=== PATIENT | female | born 1985 | race Caucasian/White ===

== ENCOUNTER 2016-05-05 11:56 | Emergency (ER) | payer BC, OTHER ==
[~2016-05-05] VITALS: Ht 162.6 cm; Wt 88.0 kg
[~2016-05-05 11:56] MED LIST: ADVIN10/60 INH; ALBU1AER9 INH; GFNSR600 PO; INSPMPNVLG; METF-384 PO; METO-217 PO; NAPR-1169 PO; OXYC-106 PO; PANT1TAB48 PO; RISP2TAB21 PO
[2016-05-05 12:01] VITALS: TEMP 36.8; Ht 162.6 cm; Wt 88.0 kg
[2016-05-05] MEDS ORDERED: FENTANYL CITRATE INJ 50 MCG/1 ML 2 ML VIAL IV STA (12:21)
[2016-05-05] MEDS ORDERED: ONDANSETRON INJ 2 MG/ML 2 ML VIAL IV STA (12:21)
[2016-05-05 12:31] VITALS: O2SAT 97
[2016-05-05 12:42] LABS: BASO % 0.4 %; BASO ABS # 0.04 K/uL (0-0.2); COMPLETE YES; EOS % 1.7 %; HEMATOCRIT 38.5 % (37-47); IG% 0.4 %; LYMPH % 29.7 %; LYMPH ABS # 2.74 K/uL (1.2-3.4); MEAN CELL VOLUME 81.7 fL (80-100); MEAN CORPUSCULAR HEMOGLOBIN 28.5 pg (25-34); MEAN CORPUSCULAR HGB CONC 34.8 g/dl (32-36); MONO % 5.6 %; NEUT % 62.2 %; PLATELET COUNT 315 K/uL (130-400); RED BLOOD COUNT 4.71 M/uL (4.2-5.4); WHITE BLOOD COUNT 9.22 K/uL (4.8-10.8)
[2016-05-05] MEDS ORDERED: MAGN250T9 PO (12:43)
[2016-05-05] MEDS ORDERED: BUPRTAB51 PO (12:43)
[2016-05-05] MEDS ORDERED: ATV/1 PO (12:43)
[2016-05-05] MEDS ORDERED: VNTHFA/IN INH (12:43)
[2016-05-05] MEDS ORDERED: CLON0.5T3 PO (12:43)
[2016-05-05] MEDS ORDERED: CHOL400T PO (12:43)
[2016-05-05 13:00] LABS: BUN/CREATININE RATIO 11.1 (10-20); CALCIUM 9.4 mg/dl (8.5-10.1); CREATININE 0.84 mg/dl (0.60-1.20); POTASSIUM 4.1 mmol/L (3.5-5.1)
[2016-05-05 13:08] LABS: INR 0.9 (0.9-1.1); PROTHROMBIN TIME (PATIENT) 10.1 SECONDS (9.0-12.0)
[2016-05-05 13:13] LABS: PREG INTERNAL NEGATIVE QC NEG CLEAR BACKGROUND; PREG INTERNAL POSITIVE QC POS CONTROL LINE
[2016-05-05 13:57] LABS: THYROID STIMULATING HORMONE 2.51 uIu/ml (0.300-4.500)
--- NOTE | 2016-05-05 14:22 | DIAGNOSTIC IMAGING REPORT ---
CHEST 2 VIEWS ROUTINE CLINICAL HISTORY: Pneumonia COMPARISON STUDY: 06/13/2014 FINDINGS: The cardiac and mediastinal contours are normal. There is no evidence of focal pulmonary consolidation. There is no evidence of failure. No pleural effusions are visualized.[ IMPRESSION: No active disease in the chest. Electronically signed by: Shahram Dubois M.D. 05/05/2016 2:20 PM Dictated Date/Time: 05/05/2016 2:19 PM
[2016-05-05 14:56] VITALS: BP 133/74; PULSE 96; O2SAT 97
--- NOTE | 2016-05-05 18:41 | EMERGENCY ROOM VISIT NOTE ---
History Report prepared by Ky: Jasmin Giraldo Under the Supervision of: Dr. Sp Sun M.D. First contact with patient: 12:08 Chief Complaint: PALPITATIONS Stated Complaint: CHEST PAIN/PALPITATIONS, SOB HX: CARDIAC Nursing Triage Summary: Pt c/o palpitations that started at 0700 this am. Mid chest pain began approx 2 hours ago, 1000. Pain goes through to back. SOB and feels like when she breaths in she's taking a deep breath of cold air. Ablation 2 years ago July 2014 for SVT History of Present Illness The patient is a 31 year old female who presents to the Emergency Room with complaints of persistent heart palpitations that began this morning when she woke up. She feels as if her heart is racing during the episodes. About 1.5-2 hours ago the patient developed sharp, central chest pain which radiates through her back and ribs as well as shortness of breath. Her pain is worse with movement. She states, "it feels like I am taking in cold air with deep breaths." Upon arrival, she also complains of nausea. She has had some acid reflux over the past 2 days. The patient was diagnosed with pneumonia and was treated for it about a month ago, although she states that she had pneumonia for an entire month. She notes that she still feels slightly weak and has a slight cough that has not gone away since being diagnosed. When she gets pneumonia she does have chest pain, but her current pain does not feel the same. The patient has a history of asthma but has not used her inhaler or nebulizer since the onset of her symptoms. She notes that she had a stress test over ten years ago. She has not had any recent falls or injuries. Denies fever, leg swelling or pain, or other complaints. She is not on hormonal control. There is no chance of . She does not smoke. She does not have a history of clots in the legs or lungs. There is a family history of heart disease. Her grandfather and uncle on her father's side of the family of heart attacks around the age of 50. Source of History: patient Onset: this morning Position: other (cardiac) Quality: other (palpitations) Timing: other (persistent) Associated Symptoms: + SOB, + chest pain, + cough, + nausea, + weakness, No fevers Review of Systems See HPI for pertinent positives & negatives. A total of 10 systems reviewed and were otherwise negative. Past Medical & Surgical Medical Problems: (1) Appendectomy (2) Asthma, Unspecified (3) Diab Ritika Wo Compl, Type Ii Or Unspec Type, Not Uncntrld (4) Esophageal Reflux (5) Hypertension Nos (6) Irritable Bowel Syndrome Family History Diabetes mellitus FH: cancer FH: gallbladder disease FH: heart disease FH: lung disease Hypertension Kidney disease Kidney stones Seizures Social History Smoking Status: Former Smoker Alcohol Use: occasionally Marital Status: in relationship Housing Status: lives with significant other Occupation Status: employed, student Current/Historical Medications Scheduled Albuterol Hfa (Ventolin Hfa), 2-4 PUFFS INH Q6H Bupropion Hcl (Wellbutrin Xl), 300 MG PO DAILY Cholecalciferol (Vitamin D), 400 UNIT PO DAILY Clonazepam (Klonopin), 0.5 MG PO TID Fluticasone Prop/Salmeterol (Advair Diskus 100/50 60 Dose), 1 PUFF INH BID Insulin Aspart (novoLOG INSULIN PUMP ), 1 EA N/A UD Magnesium (Magnesium), 250 MG PO DAILY Metformin Hcl (Glucophage), 1,000 MG PO BID Metoprolol Succinate (Toprol Xl), 50 MG PO DAILY Pantoprazole (Protonix), 40 MG PO DAILY Scheduled PRN Guaifenesin Ext Rel (Mucinex Ext Rel), 1,200 MG PO Q12 PRN for congestion Lorazepam (Ativan), 1-2 MG PO TID PRN for Anxiety Naproxen (Naprosyn), 500 MG PO BID PRN for Pain Oxycodone/Acetaminophen 10MG/325MG (Percocet 10MG/325MG), 1 TAB PO Q4-6HRS PRN for Pain Allergies Coded Allergies: Hydromorphone (Verified Allergy, Intermediate, HOT HIVES ITCHY, 05/05/16) Latex1 -Allergic Contact Dermititis (Verified Allergy, Mild, 05/05/16) Physical Exam Vital Signs Date Time Temp Pulse Resp B/P Pulse Ox O2 Delivery O2 Flow Rate FiO2 05/05/16 14:56 96 17 133/74 97 05/05/16 13:30 98 20 127/80 95 Room Air 05/05/16 12:50 91 05/05/16 12:31 97 Room Air 05/05/16 12:05 98 05/05/16 12:01 36.8 102 18 151/91 96 Room Air Physical Exam Constitutional: Vital signs reviewed. Eyes: Pupils are equal round reactive to light. Conjunctiva are noninjected. ENT: Pharynx is clear without erythema or exudate. Mucous membranes are moist. Neck supple without meningeal signs. Respiratory: Clear to auscultation bilaterally. Breath sounds are equal bilaterally. Cardiovascular: Regular rate and rhythm. No rubs or gallops. GI: Soft, nondistended and nontender. Bowel sounds are present. Musculoskeletal: No peripheral edema. No lower extremity tenderness. Reproducible rib and sternal tenderness to palpation. Integumentary: No cyanosis. Neurological: The patient is awake and alert. No focal deficits. Psychiatric: Normal affect. Medical Decision & Procedures ER Provider Diagnostic Interpretation: X-ray results as stated below per interpretation by me and the radiologist: CHEST 2 VIEWS ROUTINE CLINICAL HISTORY: Pneumonia COMPARISON STUDY: 06/13/2014 FINDINGS: The cardiac and mediastinal contours are normal. There is no evidence of focal pulmonary consolidation. There is no evidence of failure. No pleural effusions are visualized.[ IMPRESSION: No active disease in the chest. Electronically signed by: Shahram Dubois M.D. 05/05/2016 2:20 PM Dictated Date/Time: 05/05/2016 2:19 PM Laboratory Results 05/05/16 12:30 Red Blood Count 4.71, Mean Corpuscular Volume 81.7, Mean Corpuscular Hemoglobin 28.5, Mean Corpuscular Hemoglobin Concent 34.8, Mean Platelet Volume 10.0, Neutrophils (%) (Auto) 62.2, Lymphocytes (%) (Auto) 29.7, Monocytes (%) (Auto) 5.6, Eosinophils (%) (Auto) 1.7, Basophils (%) (Auto) 0.4, Neutrophils # (Auto) 5.72, Lymphocytes # (Auto) 2.74, Monocytes # (Auto) 0.52, Eosinophils # (Auto) 0.16, Basophils # (Auto) 0.04 05/05/16 12:30 Test 05/05/16 12:30 05/05/16 12:39 White Blood Count 9.22 K/uL (4.8-10.8) Red Blood Count 4.71 M/uL (4.2-5.4) Hemoglobin 13.4 g/dL (12.0-16.0) Hematocrit 38.5 % (37-47) Mean Corpuscular Volume 81.7 fL (80-100) Mean Corpuscular Hemoglobin 28.5 pg (25-34) Mean Corpuscular Hemoglobin Concent 34.8 g/dl (32-36) Platelet Count 315 K/uL (130-400) Mean Platelet Volume 10.0 fL (7.4-10.4) Neutrophils (%) (Auto) 62.2 % Lymphocytes (%) (Auto) 29.7 % Monocytes (%) (Auto) 5.6 % Eosinophils (%) (Auto) 1.7 % Basophils (%) (Auto) 0.4 % Neutrophils # (Auto) 5.72 K/uL (1.4-6.5) Lymphocytes # (Auto) 2.74 K/uL (1.2-3.4) Monocytes # (Auto) 0.52 K/uL (0.11-0.59) Eosinophils # (Auto) 0.16 K/uL (0-0.5) Basophils # (Auto) 0.04 K/uL (0-0.2) RDW Standard Deviation 39.3 fL (36.4-46.3) RDW Coefficient of Variation 13.0 % (11.5-14.5) Immature Granulocyte % (Auto) 0.4 % Immature Granulocyte # (Auto) 0.04 K/uL (0.00-0.02) Prothrombin Time 10.1 SECONDS (9.0-12.0) Prothromb Time International Ratio 0.9 (0.9-1.1) Activated Partial Thromboplast Time 24.8 SECONDS (21.0-31.0) Partial Thromboplastin Ratio 1.0 Anion Gap 9.0 mmol/L (3-11) Est Creatinine Clear Calc Drug Dose 105.2 ml/min Estimated GFR () 108.1 Estimated GFR (Non- 93.3 BUN/Creatinine Ratio 11.1 (10-20) Calcium Level 9.4 mg/dl (8.5-10.1) Thyroid Stimulating Hormone (TSH) 2.510 uIu/ml (0.300-4.500) Free Thyroxine 0.90 ng/dl (0.80-1.60) Human Chorionic Gonadotropin, Qual NEG (NEG) Bedside D-Dimer 139 ng/mlFEU (0-450) Bedside Troponin I 0.000 ng/ml (0-0.045) Laboratory results as reviewed by me. Medications Administered Medications (Trade) Dose Ordered Sig/Danette Route Start Time Stop Time Status Last Admin Dose Admin Fentanyl Citrate (Fentanyl Inj) 50 mcg NOW STAT IV 05/05/16 12:21 05/05/16 12:24 DC 05/05/16 12:44 50 MCG Ondansetron HCl (Zofran Inj) 4 mg NOW STAT IV 05/05/16 12:21 05/05/16 12:24 DC 05/05/16 12:43 4 MG ECG Indication: chest pain, palpitations Rate (beats per minute): 86 Rhythm: normal sinus Findings: no acute ischemic change, no ectopy ED Course 1215: The patient was evaluated in room C11. A complete history and physical exam was performed. 1221: Ordered Zofran Inj 4 mg IV, Fentanyl Inj 50 mcg IV. 1420: I reassessed the patient and talked to her about test results. She was feeling better. 1438: I reassessed the patient. She was resting comfortably. She agreed to take antiinflammatories for her pain. The patient was discharged home. Medical Decision This is a 31-year-old female who presents with chest pain and shortness of breath. Differential diagnosis includes pleurisy, pneumonia, musculoskeletal pain, costochondritis, pulmonary embolism. I did perform a limited focused review of portions of the patient's old chart on the electronic medical record. The patient has had no recent pertinent visits to this hospital. I did evaluate the patient as noted above. The patient is recovering from pneumonia. She was treated with antibiotics. She is presenting with very reproducible chest wall pain on palpation and with movement. IV access was established. The patient was placed on a continuous printed circuit boards router. I did treat patient with fentanyl IV. I did order and personally review the patient' s 12-lead EKG and chest x-ray as described above. Her twelve-lead EKG does not demonstrate any signs of acute ischemia. Her chest x-ray does not show pneumonia or pneumothorax. I did order and review the patient's blood work as noted in the electronic medical record. TFTs and electrolytes are unremarkable. Troponin and d-dimer are both negative. I did reassess patient. She is feeling better. I did discuss the test results with her. I did discuss the need for close follow up. She was advised to use NSAIDs for pain. She was discharged in good condition. Impression Primary Impression: Acute chest pain Additional Impression: Palpitations Scribe Attestation The scribe's documentation has been prepared under my direct and personally reviewed by me in its entirety. I confirm that the note above accurately reflects all work, treatment, procedures, and medical decision making performed by me. Departure Information Dispostion Home / Self-Care Referrals Amelia Mccartney (PCP) Patient Instructions ED Chest Pain Atypical Unkn Cause, ED Palpitations, My [facility] Additional Instructions You have been examined and treated today on an emergency basis only. This is not a substitute for, or an effort to provide, complete comprehensive medical care. It is impossible to recognize and treat all injuries or illnesses in a single emergency department visit. It is therefore important that you follow up closely with your physician. Call as soon as possible for an appointment. Return for worsening symptoms or if you develop any other concerning symptoms. Problem Qualifiers
== END 2016-05-05 14:58 | disposition home or self-care (01) ==
LOC: C.EDB 11:57 → C.EDC 14:58
DX: R00.2 Palpitations (principal); R07.9 Chest pain, unspecified; I10 Essential (primary) hypertension; E11.9 Type 2 diabetes mellitus without complications; K21.9 Gastro-esophageal reflux disease without esophagitis; J45.909 Unspecified asthma, uncomplicated; K58.9 Irritable bowel syndrome, unspecified; Z79.4 Long term (current) use of insulin; Z79.84 Long term (current) use of oral hypoglycemic drugs; Z79.899 Other long term (current) drug therapy; Z87.891 Personal history of nicotine dependence; Z88.5 Allergy status to narcotic agent; Z91.040 Latex allergy status; Z83.3 Family history of diabetes mellitus; Z80.9 Family history of malignant neoplasm, unspecified; Z83.79 Family history of other diseases of the digestive system; Z82.49 Family history of ischemic heart disease and other diseases of the circulatory system; Z84.1 Family history of disorders of kidney and ureter; Z82.0 Family history of epilepsy and other diseases of the nervous system

== ENCOUNTER 2016-11-19 12:29 | Emergency (ER) | payer BC, OTHER ==
[~2016-11-19] VITALS: Ht 163.8 cm; Wt 87.4 kg
[~2016-11-19 12:29] MED LIST changes: -ALBU1AER9 INH; +ATV/1 PO; +BUPRTAB51 PO; +CHOL400T PO; +CLON0.5T3 PO; +MAGN250T9 PO; -RISP2TAB21 PO; +VNTHFA/IN INH
[2016-11-19 12:35] VITALS: TEMP 37.1; Ht 163.8 cm; Wt 87.4 kg
[2016-11-19] MEDS ORDERED: CLON1TAB3 PO (13:03)
[2016-11-19] MEDS ORDERED: ZNTT/150 PO (13:03)
[2016-11-19] MEDS ORDERED: KETOROLAC TROMETHAMINE 30 MG/ML VIAL IV STA (13:20)
[2016-11-19] MEDS ORDERED: ALBUT/IPRATROP 3MG/0.5MG NEB 3 ML VIAL INH STA (13:20)
--- NOTE | 2016-11-19 13:26 | EMERGENCY ROOM VISIT NOTE ---
History First contact with patient: 13:03 Chief Complaint: CHEST PAIN Stated Complaint: CHEST/RIB PAIN, SOB Nursing Triage Summary: Pt presents with "muscle tightness" in upper abd for a couple days. Pain under b/l breasts started this morning. SOB. Pt reports hx of pleurisy and two nodules on left lung. History of Present Illness The patient is a 31 year old female who presents to the Emergency Room with complaints of epigastric and bilateral chest pain that started last night. It started in her upper abdomen. Now it is radiating to the sides of her ribs. It is exacerbated with deep breathing. She denies any shortness of breath. No recent illnesses such as cough or fever. The patient was a history of tachycardia. She underwent an ablation in 2013. She does admit to feeling occasionally lightheaded. She denies any heart racing or heart palpitations. She has been nauseated since last night without any vomiting. No changes in her bowel movements. No recent changes in medications. Review of Systems 10 system review performed and negative unless noted in HPI or below Past Medical/Surgical History Medical Problems: (1) Appendectomy (2) Asthma, Unspecified (3) Diab Ritika Wo Compl, Type Ii Or Unspec Type, Not Uncntrld (4) Esophageal Reflux (5) Hypertension Nos (6) Irritable Bowel Syndrome Family History Diabetes mellitus FH: cancer FH: gallbladder disease FH: heart disease FH: lung disease Hypertension Kidney disease Kidney stones Seizures Social History Smoking Status: Former Smoker Alcohol Use: occasionally Marital Status: in relationship Housing Status: other (lives with her brother) Occupation Status: employed, student Current/Historical Medications Scheduled Albuterol Hfa (Ventolin Hfa), 2-4 PUFFS INH Q6H Bupropion Hcl (Wellbutrin Xl), 300 MG PO DAILY Cholecalciferol (Vitamin D), 400 UNIT PO DAILY Clonazepam (Klonopin), 1 MG PO TID Fluticasone Prop/Salmeterol (Advair Diskus 100/50 60 Dose), 1 PUFF INH BID Insulin Aspart (novoLOG INSULIN PUMP ), 1 EA N/A UD Magnesium (Magnesium), 250 MG PO DAILY Metformin Hcl (Glucophage), 1,000 MG PO BID Metoprolol Succinate (Toprol Xl), 50 MG PO DAILY Pantoprazole (Protonix), 40 MG PO DAILY Ranitidine (Zantac), 1 TAB PO DAILY Scheduled PRN Guaifenesin Ext Rel (Mucinex Ext Rel), 1,200 MG PO Q12 PRN for congestion Lorazepam (Ativan), 1-2 MG PO TID PRN for Anxiety Naproxen (Naprosyn), 500 MG PO BID PRN for Pain Oxycodone/Acetaminophen 10MG/325MG (Percocet 10MG/325MG), 1 TAB PO Q4-6HRS PRN for Pain Physical Exam Vital Signs Date Time Temp Pulse Resp B/P (MAP) Pulse Ox O2 Delivery O2 Flow Rate FiO2 11/19/16 15:43 97 20 133/86 97 Room Air 11/19/16 14:23 104 11/19/16 14:23 100 18 128/86 95 Room Air 11/19/16 12:35 37.1 99 18 136/82 98 Room Air Physical Exam VITALS: Vitals are noted on the nurse's note and reviewed by myself. Vital signs stable. GENERAL: 31-year-old female, in no acute distress, nondiaphoretic, well- developed well-nourished. SKIN: The skin was without rashes, erythema, edema, or bruising. HEAD: Normocephalic atraumatic. MOUTH: Mucous membranes slightly dry. NECK: Supple without nuchal rigidity.No JVD. HEART: Regular rate and rhythm without murmurs gallops or rubs. THORAX: Tenderness to palpation on the lateral aspect of the ribs bilaterally. LUNGS: Slight wheezing in the lower lung davies bilaterally. No tachypnea. No accessory muscle use. No crackles. ABDOMEN: Positive bowel sounds x 4.Soft, mild tenderness to palpation in the epigastric and left upper quadrant without organomegaly. No guarding or rebound tenderness. MUSCULOSKELETAL: No muscle atrophy, erythema, or edema noted. No tenderness to palpation. . Strength 5/5 throughout. NEURO: Patient was alert and oriented to person place and time. Normal sensation to touch. No focal neurological deficits. Medical Decision & Procedures ER Provider Diagnostic Interpretation: Patient Name: MARIAM MCCOY Unit Number: [id number] Dictated: 11/19/161334 Transcribed: 11/19/161334 JA Printed Date/Time: [~ rep prt dt]/[~ rep prt tm] [~ rep ct labl] - [~ rep ct ivnm] [facility] [place] [place] [address] Dictated: 11/19/16 1335 Transcribed: 11/19/16 1335 JA Printed Date/Time: [~ rep prt dt]/[~ rep prt tm] [~ rep ct labl] - [~ rep ct ivnm] CHEST ONE VIEW PORTABLE CLINICAL HISTORY: Chest pain. Wheezing. COMPARISON STUDY: Chest radiograph May 05, 2016. FINDINGS: Lung volumes are normal. There is no pneumothorax or pleural effusion. Cardiac size is normal. Mediastinal contours are normal. There is no evidence of pulmonary edema. IMPRESSION: No acute cardiopulmonary findings. Electronically signed by: Froylan Salter M.D. 11/19/2016 1:35 PM Dictated Date/Time: 11/19/2016 1:35 PM The status of this report is Signed. Draft = Not yet reviewed or approved by Radiologist. Signed = Reviewed and approved by Radiologist. <AttendingPhy></AttendingPhy> <FamilyPhy>Pankaj Chavez D.O.</FamilyPhy> < PrimaryPhy>Pankaj Chavez D.O.</PrimaryPhy> <UnitNumber>[id number]</UnitNumber > <VisitNumber>[id number]</VisitNumber> <PatientName>MARIAM MCCOY</ PatientName> <DateOfBirth>1985</DateOfBirth> <Location>C.EDB</Location> < ServiceDate>11/19/16</ServiceDate> <MNE>ESINDI</MNE> <OrderingPhy>Mishel Villeda PA-C</OrderingPhy> <OrderingPhyMNE>f rep ord dr collazo</OrderingPhyMNE> < DictatingPhyMNE>f rep dict dr collazo</DictatingPhyMNE> <CCListMNE>f rep ct mne</ CCListMNE> <AdmittingPhyMNE>f pt admit dr collazo</AdmittingPhyMNE> <AttendingPhyMNE >f pt attend dr collazo</AttendingPhyMNE> <ConsultingPhyMNE>f pt consult dr collazo</ConsultingPhyMNE> <FamilyPhyMNE>f pt fam dr mne</FamilyPhyMNE> <OtherPhyMNE>f pt other mne</OtherPhyMNE> < PrimaryPhyMNE>f pt prim care mne</PrimaryPhyMNE> <ReferringPhyMNE>f pt referring mne</ReferringPhyMNE> Laboratory Results 11/19/16 12:51 Red Blood Count 4.91, Mean Corpuscular Volume 82.5, Mean Corpuscular Hemoglobin 27.9, Mean Corpuscular Hemoglobin Concent 33.8, Mean Platelet Volume 10.4, Neutrophils (%) (Auto) 64.8, Lymphocytes (%) (Auto) 25.5, Monocytes (%) (Auto) 7.5, Eosinophils (%) (Auto) 1.4, Basophils (%) (Auto) 0.3, Neutrophils # (Auto) 5.59, Lymphocytes # (Auto) 2.20, Monocytes # (Auto) 0.65, Eosinophils # (Auto) 0.12, Basophils # (Auto) 0.03 11/19/16 12:51 Test 11/19/16 12:51 11/19/16 13:38 White Blood Count 8.63 K/uL (4.8-10.8) Red Blood Count 4.91 M/uL (4.2-5.4) Hemoglobin 13.7 g/dL (12.0-16.0) Hematocrit 40.5 % (37-47) Mean Corpuscular Volume 82.5 fL (80-100) Mean Corpuscular Hemoglobin 27.9 pg (25-34) Mean Corpuscular Hemoglobin Concent 33.8 g/dl (32-36) Platelet Count 288 K/uL (130-400) Mean Platelet Volume 10.4 fL (7.4-10.4) Neutrophils (%) (Auto) 64.8 % Lymphocytes (%) (Auto) 25.5 % Monocytes (%) (Auto) 7.5 % Eosinophils (%) (Auto) 1.4 % Basophils (%) (Auto) 0.3 % Neutrophils # (Auto) 5.59 K/uL (1.4-6.5) Lymphocytes # (Auto) 2.20 K/uL (1.2-3.4) Monocytes # (Auto) 0.65 K/uL (0.11-0.59) Eosinophils # (Auto) 0.12 K/uL (0-0.5) Basophils # (Auto) 0.03 K/uL (0-0.2) RDW Standard Deviation 39.3 fL (36.4-46.3) RDW Coefficient of Variation 13.0 % (11.5-14.5) Immature Granulocyte % (Auto) 0.5 % Immature Granulocyte # (Auto) 0.04 K/uL (0.00-0.02) D-Dimer < 190 ug/L FEU (0-500) Anion Gap 9.0 mmol/L (3-11) Est Creatinine Clear Calc Drug Dose 90.7 ml/min Estimated GFR () 89.7 Estimated GFR (Non- 77.4 BUN/Creatinine Ratio 11.4 (10-20) Calcium Level 9.0 mg/dl (8.5-10.1) Total Bilirubin 0.3 mg/dl (0.2-1) Aspartate Amino Transf (AST/SGOT) 71 U/L (15-37) Alanine Aminotransferase (ALT/SGPT) 118 U/L (12-78) Alkaline Phosphatase 84 U/L (45-117) Total Creatine Kinase 46 U/L (26-192) Creatine Kinase MB 0.8 ng/ml (0.5-3.6) Creatine Kinase MB Ratio 1.7 (0-3.0) Troponin I < 0.015 ng/ml (0-0.045) Total Protein 7.1 gm/dl (6.4-8.2) Albumin 3.6 gm/dl (3.4-5.0) Globulin 3.5 gm/dl (2.5-4.0) Albumin/Globulin Ratio 1.0 (0.9-2) Lipase 260 U/L (73-393) Beta-Hydroxybutyric Acid 1.73 mg/dL (0.2-2.81) Thyroid Stimulating Hormone (TSH) 0.979 uIu/ml (0.300-4.500) Urine Color YELLOW Urine Appearance CLEAR (CLEAR) Urine pH 5.5 (4.5-7.5) Urine Specific [place] 1.025 (1.000-1.030) Urine Protein NEG (NEG) Urine Glucose (UA) 3+ (NEG) Urine Ketones TRACE (NEG) Urine Occult Blood NEG (NEG) Urine Nitrite NEG (NEG) Urine Bilirubin NEG (NEG) Urine Urobilinogen NEG (NEG) Urine Leukocyte Esterase NEG (NEG) Urine Test NEG (NEG) Medications Administered Medications (Trade) Dose Ordered Sig/Danette Route Start Time Stop Time Status Last Admin Dose Admin Albuterol/ Ipratropium (Duoneb) 3 ml ONE STAT INH 11/19/16 13:20 11/19/16 13:22 DC 11/19/16 13:35 3 ML Ketorolac Tromethamine (Toradol Inj) 30 mg NOW STAT IV 11/19/16 13:20 11/19/16 13:22 DC 11/19/16 13:35 30 MG Sodium Chloride 1,000 ml @ 999 mls/hr Q1H1M ONCE IV 11/19/16 13:30 11/19/16 14:30 DC 11/19/16 13:35 999 MLS/HR ECG Indication: chest pain Rate (beats per minute): 86 Rhythm: sinus with SA ED Course Patient was seen and examined Vital signs including blood pressure were reviewed medications list was verified with patient Labs were obtained, and a saline lock was established The patient was hydrated with 1 L of normal saline. She was given Toradol 30 mg IV. She was given a DuoNeb. Imaging was performed and reviewed The patient was reassessed and sleeping in bed. We discussed her workup. She said that the nebulizer treatment helped. Her pain was also improved. I reviewed discharge instructions the patient. They voiced understanding and had no further questions. Medical Decision Differential diagnosis: Acute myocardial infarction, cardiac arrhythmia, anemia , thyroid abnormality, pneumothorax, pneumonia, bronchitis, pericarditis, electrolyte imbalance , asthma exacerbation, musculoskeletal pain, costochondritis, pancreatitis, this patient is a 31-year-old female that presented to the emergency department with complaints of epigastric and chest pain. It was encouraging that the patient's pain is exacerbated with palpation. She experienced pain when I pressed on her lateral ribs bilaterally. I had a low suspicion of cardiac pain given her age. Her cardiac enzymes are negative. Her EKG shows no signs of acute ischemia. She does have a history of tachycardia and underwent a ablation. Today, she is not tachycardic. She did have some wheezing on exam. This was treated with a DuoNeb with good symptom relief. The patient has inhalers at home. I suggested that she try ibuprofen for her chest pain. I also recommended that she follow-up with her primary care physician as her liver enzymes are slightly elevated. the etiology of this is unclear, however her total bilirubin and lipase are normal. I do not suspect a gallstone. Her blood sugar was also elevated. She has an insulin pump and is following with her primary care physician's. She is not in DKA. The patient is comfortable and in agreement with this plan. She agrees to return to the emergency department with any new or worsening symptoms. Medication Reconcilliation Current Medication List: was personally reviewed by me Impression Primary Impression: Chest wall pain Departure Information Dispostion Home / Self-Care Condition GOOD Referrals Pankaj Chavez D.O. (PCP) Patient Instructions ED CH WALL [id number]/, My [facility] Additional Instructions You were evaluated in the emergency department for chest pain. There are no signs that this is related to your heart. This is likely coming from the chest wall itself. Your liver function tests were slightly abnormal. I recommend that you follow up with your primary care physician within the next week to have them rechecked. Please take iburofen 600 mg every 8 hours for pain for the next 48 hours. Return to the emergency department if you have any of the following symptoms: -Fever of 103F or greater -Persistent vomiting - Persistent diarrhea -Lethargy -Worsening Chest pain -Shortness of breath
[2016-11-19] MEDS ORDERED: SODIUM CHLORIDE 0.9% 1000ML 1,000 ML IV ONE (13:30)
[2016-11-19 13:33] LABS: BASO % 0.3 %; BASO ABS # 0.03 K/uL (0-0.2); COMPLETE YES; EOS % 1.4 %; HEMATOCRIT 40.5 % (37-47); IG% 0.5 %; LYMPH % 25.5 %; MEAN CELL VOLUME 82.5 fL (80-100); MEAN CORPUSCULAR HEMOGLOBIN 27.9 pg (25-34); MEAN CORPUSCULAR HGB CONC 33.8 g/dl (32-36); MEAN PLATELET VOLUME 10.4 fL (7.4-10.4); MONO % 7.5 %; NEUT % 64.8 %; PLATELET COUNT 288 K/uL (130-400); RED BLOOD COUNT 4.91 M/uL (4.2-5.4); WHITE BLOOD COUNT 8.63 K/uL (4.8-10.8)
--- NOTE | 2016-11-19 13:36 | DIAGNOSTIC IMAGING REPORT ---
CHEST ONE VIEW PORTABLE CLINICAL HISTORY: Chest pain. Wheezing. COMPARISON STUDY: Chest radiograph May 05, 2016. FINDINGS: Lung volumes are normal. There is no pneumothorax or pleural effusion. Cardiac size is normal. Mediastinal contours are normal. There is no evidence of pulmonary edema. IMPRESSION: No acute cardiopulmonary findings. Electronically signed by: Froylan Salter M.D. 11/19/2016 1:35 PM Dictated Date/Time: 11/19/2016 1:35 PM
[2016-11-19 13:47] LABS: ALT/SGPT 118 U/L (12-78); BLOOD UREA NITROGEN 11 mg/dl (7-18); BUN/CREATININE RATIO 11.4 (10-20); CARBON DIOXIDE 23 mmol/L (21-32); CHLORIDE 102 mmol/L (98-107); CREATININE 0.98 mg/dl (0.60-1.20); GLUCOSE 330 mg/dl (70-99); POTASSIUM 3.9 mmol/L (3.5-5.1); SODIUM 134 mmol/L (136-145)
[2016-11-19 13:50] LABS: ALKALINE PHOSPHATASE 84 U/L (45-117); AST/SGOT 71 U/L (15-37)
[2016-11-19 13:58] LABS: BETA-HYDROXYBUTYRATE 1.73 mg/dL (0.2-2.81); CKMB/CK RATIO 1.7 (0-3.0); THYROID STIMULATING HORMONE 0.979 uIu/ml (0.300-4.500)
[2016-11-19 14:07] LABS: URINE APPEARANCE CLEAR (CLEAR); URINE BILIRUBIN NEG (NEG); URINE COLOR YELLOW; URINE NITRITE NEG (NEG); URINE PH 5.5 (4.5-7.5); URINE SPECIFIC GRAVITY 1.025 (1.000-1.030); UROBILINOGEN NEG (NEG)
[2016-11-19 14:27] LABS: MANUAL MICROSCOPIC REQUIRED? NO; REVIEW REQ? NO
[2016-11-19 15:43] VITALS: BP 133/86; PULSE 97; O2SAT 97
== END 2016-11-19 15:56 | disposition home or self-care (01) ==
LOC: C.EDB 12:30
DX: R07.89 Other chest pain (principal); E11.9 Type 2 diabetes mellitus without complications; I10 Essential (primary) hypertension; J45.909 Unspecified asthma, uncomplicated; K58.9 Irritable bowel syndrome, unspecified; Z98.890 Other specified postprocedural states; Z87.891 Personal history of nicotine dependence; Z79.4 Long term (current) use of insulin; Z79.84 Long term (current) use of oral hypoglycemic drugs; Z79.899 Other long term (current) drug therapy; Z83.3 Family history of diabetes mellitus; Z80.9 Family history of malignant neoplasm, unspecified; Z83.79 Family history of other diseases of the digestive system; Z84.1 Family history of disorders of kidney and ureter; Z82.49 Family history of ischemic heart disease and other diseases of the circulatory system; Z82.0 Family history of epilepsy and other diseases of the nervous system

== ENCOUNTER → 2017-06-04 | Outpatient (CLI) | payer OTHER ==
[~2017-06-04] MED LIST changes: -CLON0.5T3 PO; +CLON1TAB3 PO; +PANT1TAB3 PO; -PANT1TAB48 PO; +RANI150T85 PO
[2017-06-04 16:58] LABS: BLOOD UREA NITROGEN 10 mg/dl (7-18); CALCIUM 9.4 mg/dl (8.5-10.1); CARBON DIOXIDE 26 mmol/L (21-32); CHOLESTEROL 210 mg/dl (0-200); CREATININE 0.76 mg/dl (0.60-1.20); GLUCOSE 124 mg/dl (70-99); POTASSIUM 3.7 mmol/L (3.5-5.1); SODIUM 136 mmol/L (136-145)
[2017-06-05 06:52] LABS: HEMOGLOBIN A1C 9.8 % (4.5-5.6)
== END | disposition home or self-care (01) ==
LOC: C.LABBFT 11:48
PROVIDERS: ATTEND Nurse Practitioner Family
DX: E10.65 Type 1 diabetes mellitus with hyperglycemia (principal)

== ENCOUNTER → 2017-08-16 | Outpatient (CLI) | payer OTHER ==
[~2017-08-16] MED LIST changes: -OXYC-106 PO; +OXYC10TA80 PO
--- NOTE | 2017-08-16 15:34 | DIAGNOSTIC IMAGING REPORT ---
PELVIC COMPLETE NON OB HISTORY: 32 years-old Female ENDOMETRIOSIS,EVAL PLACEMENT OF IUD status post placement of an intrauterine device. History of endometriosis. COMPARISON: Pelvic ultrasound 06/01/2011 TECHNIQUE: Multiple real-time sonographic images of the deep pelvic structures were obtained transabdominally and transvaginally assessing grayscale appearance, color and spectral flow FINDINGS: TRANSABDOMINAL: Anteflexed uterus is noted with an intrauterine device present which appears to be in appropriate positioning. Endometrium measures 0.3 cm and appears homogeneous. Left ovary measures within normal limits and appears unremarkable with arterial inflow and venous outflow documented. Right ovary measures within normal limits and demonstrates arterial inflow and venous outflow. TRANSVAGINAL: Anteflexed uterus measures 7.7 x 3.5 x 4.2 cm and is unremarkable. No myometrial mass lesions. 0.2 cm endometrium. Intrauterine device appears to be in appropriate positioning within the mid and fundal portion of the endometrial canal. The right ovary measures 3.3 x 2.6 x 2.8 cm and demonstrates follicles with arterial inflow and venous outflow. No right adnexal mass lesions. The left ovary measures 3.8 x 2.4 x 2.1 cm and also demonstrates normal-appearing follicles, arterial inflow and venous outflow. No suspicious left adnexal mass lesions. No significant free pelvic fluid. IMPRESSION: 1. Intrauterine device appears to be in satisfactory positioning. 2. Unremarkable sonographic appearance of the bilateral ovaries. The above report was generated using voice recognition software. It may contain grammatical, syntax or spelling errors. Electronically signed by: Elmer Gaston M.D. 08/16/2017 3:33 PM Dictated Date/Time: 08/16/2017 3:30 PM
== END | disposition home or self-care (01) ==
LOC: C.ULTR 14:47
PROVIDERS: ATTEND Obstetrics & Gynecology
DX: T83.83XA Hemorrhage due to genitourinary prosthetic devices, implants and grafts, initial encounter (principal); X58.XXXA Exposure to other specified factors, initial encounter; N80.9 Endometriosis, unspecified; R10.2 Pelvic and perineal pain